=== PATIENT | female | born 1940 | race Caucasian/White ===

== ENCOUNTER → 2016-08-07 | Outpatient (CLI) | payer MEDICARE, OTHER ==
[~2016-08-07] MED LIST: ALBUTEROL17 GM INH; ALBUTEROL2.5 MG/0.5 INH; ASPIRIN PO; ASPIRIN81 M2 PO; ATACAND PO; ATENOLOL PO; ATENOLOL50 MG PO; BENZONATATE PO; METFORMIN PO; NEXIUM PO; PLAVIX PO; PROAIR HFA8.5 GM; SIMVASTATIN20 MG PO; SINGULAIR PO; SPIRIVA18 MCG INH; SYMBICORT 160/4.6 GM INH; VANTIN100 MG PO; VITAMIN C1000 M1 PO; ZITHROMAX500 MG PO; ZOCOR PO; [UNRECOGNIZED DRUG - OTHER]; [UNRECOGNIZED DRUG - OTHER]; [UNRECOGNIZED DRUG - OTHER]; [UNRECOGNIZED DRUG - OTHER]; [UNRECOGNIZED DRUG - OTHER] PO
--- NOTE | ~2016-08-07 | CT57 ---
[facility] A Service of [facility] & [facility] RADIOLOGY TEXT RESULTS PATIENT: MILADIS WALKER [facility] #: [id number] AGE: [address]: Garret Chu MD SEX: F ORDER DR: [id number] [facility] [address] [place], [place] [address] [id number] O MR#: [id number] Acc #: [id number] NAME: MILADIS WALKER : 1940 SEX: F STUDY DATE/TIME: 08/07/2016 13:03 UNIT: [facility] ROOM: STUDY DESCRIPTION: CT Chest Wo Cont Attending Physician: Garret Chu M.D. Referring Physician: Garret Chu M.D. Ordering Physician: Garret Chu M.D. Primary Care Physician: Shavonne Ortiz M.D. MEDICAL IMAGING REPORT This report is preliminary unless electronic signature is present EXAM CT chest without contrast 08/07/2016 1303 hours HISTORY 76-year-old woman with history of lung and breast carcinoma with radiation therapy May 2016 for followup. Patient complains of shortness of air for 1 week. COMPARISON PET/CT 03/28/[address] 03/21/2016. TECHNIQUE Helical noncontrasted images were obtained from the thoracic inlet through the adrenal glands. Sagittal and coronal reconstructions were performed. No contrast was administered. Total exam DLP 417 mGy-cm. This CT examination was performed with one or more of the following radiation dose reduction techniques: automatic exposure control, adjustment of mA and/or kV according to patient size, and iterative reconstruction. FINDINGS Images through the thoracic inlet demonstrate no thyroid lesion or supraclavicular adenopathy. 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 There is no pathologic mediastinal, hilar or axillary adenopathy. There is left mastectomy change with no evidence of local recurrence. There are diffuse coronary calcifications. There is no pericardial or pleural fluid. Lung window images demonstrate underlying moderate centrilobular emphysema. 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 [facility] A Service of [facility] & [facility] RADIOLOGY TEXT RESULTS PATIENT: MILADIS WALKER LOCATION: [facility] : 38 UNIT #: [id number] AGE: [address]: Garret Chu MD SEX: F ORDER DR: measuring 1.3 x 1.2 cm previously 1.7 x 1.3 cm. It has decreased in density centrally as well. The previous multifocal ground-glass and tree-in-bud densities in the right upper lobe, right middle lobe and lingula have also resolved. There is some linear scarring in the right middle lobe and lingula. There are no additional nodules seen. Limited views through the upper abdomen demonstrate no liver lesion. There are multiple calcified granulomata within the spleen without change. No adrenal mass. IMPRESSION 1. Interval decrease in the size and central density of the patient's spiculated primary carcinoma in the right upper lobe now measuring 1.3 x 1.2 cm previously 1.7 x 1.3 cm. 2. There is underlying emphysematous change with interval resolution of the ground-glass and tree-in-bud densities seen on the prior study which were likely infectious or inflammatory. There is minimal linear scarring in the right middle lobe and lingula. There are no residual nodules elsewhere. 3. No adenopathy or evidence of metastatic disease in the chest. Dictated by... Izabela Le M.D. THIS IS AN ELECTRONICALLY VERIFIED REPORT Izabela Le M.D. at 08/08/2016 9:30 AM LUCHO/zak TD: 08/07/2016 14:03 JOB #: [id number] MEDICAL IMAGING REPORT Page 1 of 1 COPY
== END | disposition home or self-care (01) ==
LOC: CCAT 12:31
DX: C34.11 Malignant neoplasm of upper lobe, right bronchus or lung (principal); J43.9 Emphysema, unspecified
CPT/HCPCS: 71250